=== PATIENT | female | born 1970 | race American Indian/Alaskan Native ===

== ENCOUNTER 2019-09-24 11:39 | Emergency (ER) | payer SELFPAY ==
[2019-09-24 11:52] VITALS: BP 145/86
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
[2019-09-24] MEDS ORDERED: IBUPROFEN 600 MG TAB PO ONE (14:12)
[2019-09-24] MEDS ORDERED: tiZANidine TAB 4 MG TAB PO ONE (14:13)
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
== END 2019-09-24 14:34 | disposition home or self-care (01) ==
LOC: ED 11:39
DX: S16.1XXA Strain of muscle, fascia and tendon at neck level, initial encounter (principal); M94.0 Chondrocostal junction syndrome [Tietze]; R07.89 Other chest pain; F17.200 Nicotine dependence, unspecified, uncomplicated; E03.9 Hypothyroidism, unspecified; Z79.899 Other long term (current) drug therapy; Z88.0 Allergy status to penicillin; V49.59XA Passenger injured in collision with other motor vehicles in traffic accident, initial encounter; Y93.89 Activity, other specified; Y92.410 Unspecified street and highway as the place of occurrence of the external cause; Y99.8 Other external cause status
CPT/HCPCS: 71111; 72040